=== PATIENT | male | born 1975 | race Caucasian/White ===

== ENCOUNTER 2018-06-11 14:31 | Emergency (ER) | payer MEDICARE ==
[~2018-06-11] VITALS: Ht 177.8 cm; Wt 81.8 kg
[2018-06-11 15:23] VITALS: Ht 177.8 cm; Wt 81.8 kg
[2018-06-11] MEDS ORDERED: ROBAXIN-750750 MG PO (17:20)
[2018-06-11 18:25] VITALS: BP 116/75
== END 2018-06-11 17:53 | disposition home or self-care (01) ==
LOC: D.ER 14:31
DX: S29.012A Strain of muscle and tendon of back wall of thorax, initial encounter (principal); V29.9XXA Motorcycle rider (driver) (passenger) injured in unspecified traffic accident, initial encounter; Y93.89 Activity, other specified; Y92.410 Unspecified street and highway as the place of occurrence of the external cause; S80.11XA Contusion of right lower leg, initial encounter; K75.9 Inflammatory liver disease, unspecified; B20 Human immunodeficiency virus [HIV] disease; F17.200 Nicotine dependence, unspecified, uncomplicated